=== PATIENT | female | born 1955 | race Two or more races ===

== ENCOUNTER 2022-06-04 21:09 | Emergency (ER) | payer OTHER ==
[~2022-06-04] VITALS: Ht 160 cm; Wt 70.0 kg
[2022-06-05 01:03] LABS: Urine Bacteria NONE SEEN /hpf (None Seen); Urine Blood Negative /uL (Negative); Urine Hyaline Cast MANY /lpf (0 - 2); Urine Mucus FEW (None Seen); Urine Specific Gravity 1.035 (1.001-1.035); Urine WBC 12 /hpf (0 - 5)
[2022-06-05] MEDS ORDERED: LACTATED RINGER'S 1,000 ML IV ONE (02:15)
[2022-06-05 02:53] LABS: Albumin 3.3 g/dL (3.4-5.0); BUN/Creatinine Ratio 19.4; Calcium 8.3 mg/dL (8.5-10.1); Potassium 3.5 mmol/L (3.5-5.1)
[2022-06-05 03:05] LABS: INR 1.18 (0.9-1.15); Partial Thromboplastin Time 26.5 sec (24.6-33.4)
[2022-06-05 03:07] LABS: Bilirubin, Total 0.4 mg/dL (0.2-1.0); Total Protein 5.9 g/dL (6.4-8.2)
[2022-06-05 03:09] LABS: Hematocrit 40.9 % (36.0-46.0); Hemoglobin 13.9 g/dL (12.2-16.2); Mean Corpuscular Hemoglobin 30.8 pg (28.0-32.0); Mean Corpuscular Hgb Conc. 33.9 g/dL (32.0-36.0); Mean Corpuscular Volume 90.9 fL (80.0-100.0); Red Cell Distribution Width 13.4 % (11.8-14.3); White Blood Cell 14.7 10^3/uL (4.4-10.8)
[2022-06-05 03:11] LABS: Band Neutrophils % (manual) 0; Basophils % (manual) 0 (0.0-2.0); Blast Cells 0; Metamyelocytes % 0; Myelocytes % 0; Promyelocytes % 0; Reactive Lymphocytes 0
[2022-06-05 03:41] LABS: Eosinophils % (manual) 23 (0-7); Lymphocytes % (manual) 25 (10.0-50.0); Monocytes % (manual) 4 (0-12)
[2022-06-05] MEDS ORDERED: FAMO20TA10 PO (04:17)
[2022-06-05 07:53] VITALS: BP 139/63
== END 2022-06-05 07:52 | disposition home or self-care (01) ==
LOC: ER 21:09
DX: R10.13 Epigastric pain (principal)
CPT/HCPCS: 36415; 74176; 80053; 81001; 83605; 83690; 84484; 85007; 85027; 85610; 85730; 87040; 96360

== ENCOUNTER → 2022-06-08 | Outpatient (CLI) | payer OTHER ==
[~2022-06-08] MED LIST: FAMO20TA10 PO
[2022-06-08 09:09] LABS: Hematocrit 41.9 % (36.0-46.0); Hemoglobin 14.1 g/dL (12.2-16.2); Mean Corpuscular Hemoglobin 30.4 pg (28.0-32.0); Mean Corpuscular Hgb Conc. 33.7 g/dL (32.0-36.0); Mean Corpuscular Volume 90.2 fL (80.0-100.0); Red Blood Cells 4.65 10^6/uL (4.0-5.20); Red Cell Distribution Width 13.6 % (11.8-14.3); White Blood Cell 13.4 10^3/uL (4.4-10.8)
[2022-06-08 09:22] LABS: Basophils % (manual) 0 (0.0-2.0); Blast Cells 0; Metamyelocytes % 0; Myelocytes % 0; Promyelocytes % 0
[2022-06-08 10:02] LABS: Urine Bacteria NONE SEEN /hpf (None Seen); Urine Blood Negative /uL (Negative); Urine Specific Gravity 1.009 (1.001-1.035); Urine WBC 2 /hpf (0 - 5)
[2022-06-08 10:05] LABS: Magnesium 2.2 mg/dL (1.6-2.6); Potassium 3.5 mmol/L (3.5-5.1)
[2022-06-08 10:12] LABS: Albumin 3.5 g/dL (3.4-5.0); BUN/Creatinine Ratio 6.8; Bilirubin, Total 0.5 mg/dL (0.2-1.0); Calcium 8.8 mg/dL (8.5-10.1); Total Protein 6.4 g/dL (6.4-8.2); Uric Acid 3.6 mg/dL (2.6-6.0)
[2022-06-08 12:12] LABS: Band Neutrophils % (manual) 1; Eosinophils % (manual) 47 (0-7); Lymphocytes % (manual) 20 (10.0-50.0); Monocytes % (manual) 3 (0-12); Reactive Lymphocytes 5
== END | disposition home or self-care (01) ==
LOC: LAB 08:45
PROVIDERS: ATTEND Family Medicine
DX: Z00.00 Encounter for general adult medical examination without abnormal findings (principal); R53.83 Other fatigue; E55.9 Vitamin D deficiency, unspecified; R11.0 Nausea; R19.7 Diarrhea, unspecified; H40.9 Unspecified glaucoma
CPT/HCPCS: 36415; 80053; 80061; 81001; 82306; 82607; 83036; 83540; 83735; 84443; 84550; 85007; 85027

== ENCOUNTER → 2022-06-13 | Outpatient (CLI) | payer OTHER | END | disposition home or self-care (01) | LOC: LAB 12:35 | PROVIDERS: ATTEND Family Medicine | DX: Z00.00 Encounter for general adult medical examination without abnormal findings (principal); R19.7 Diarrhea, unspecified; R11.0 Nausea; H40.9 Unspecified glaucoma; E55.9 Vitamin D deficiency, unspecified; R53.83 Other fatigue | CPT/HCPCS: 87177 ==

== ENCOUNTER → 2024-02-01 | Outpatient (CLI) | payer OTHER | END | disposition home or self-care (01) | LOC: LAB 13:17 | PROVIDERS: ATTEND Family Medicine | DX: Z00.00 Encounter for general adult medical examination without abnormal findings (principal); R19.7 Diarrhea, unspecified; R10.9 Unspecified abdominal pain | CPT/HCPCS: 82270 ==

== ENCOUNTER → 2024-02-08 | Outpatient (CLI) | payer OTHER ==
[2024-02-08 09:59] LABS: Urine Bacteria None Seen /hpf (None Seen); Urine WBC None Seen /hpf (0 - 5)
[2024-02-08 10:14] LABS: Basophils # (auto) 0.1 10 ^3/uL (0-0.2); Basophils % (auto) 2.3 % (0.0-2.0); Eosinophils # (auto) 0.4 10 ^3/uL (0-0.8); Eosinophils % (auto) 6.8 % (0.0-7.0); Hematocrit 40.4 % (36.0-46.0); Hemoglobin 13.8 g/dL (12.2-16.2); Lymphocytes # (auto) 2.2 10 ^3/uL (0.4-5.4); Lymphocytes % (auto) 33.5 % (10.0-50.0); Mean Corpuscular Hemoglobin 31.1 pg (28.0-32.0); Mean Corpuscular Hgb Conc. 34.2 g/dL (32.0-36.0); Mean Corpuscular Volume 90.8 fL (80.0-100.0); Monocytes # (auto) 0.4 10 ^3/uL (0-1.3); Monocytes % (auto) 5.7 % (0.0-12.0); Neutrophils # (auto) 3.4 10 ^3/uL (1.6-8.6); Neutrophils % (auto) 51.7 % (37.0-80.0); Nucleated Red Blood Cells % 0.1 %; Platelet Count (auto) 289 10^3/uL (140-450); Red Blood Cells 4.45 10^6/uL (4.0-5.20); Red Cell Distribution Width 14.1 % (11.8-14.3); White Blood Cell 6.6 10^3/uL (4.4-10.8)
[2024-02-08 10:40] LABS: Urine Blood Negative /uL (Negative); Urine Clarity Clear (Clear); Urine Protein, UAD Negative (Negative); Urine Specific Gravity 1.005 (1.001-1.035); Urine Urobilinogen Normal (Negative); Urine pH 7.5 (5.0-9.0)
[2024-02-08 10:44] LABS: Urine Color Light-Yellow (Yellow)
[2024-02-08 10:56] LABS: Folate (Folic Acid) 11.32 ng/mL (>5.38)
[2024-02-08 11:10] LABS: Alanine Aminotransferase 15 U/L (7-40); Albumin 4.4 g/dL (3.2-4.8); Alkaline Phosphatase 81 U/L (46-116); Anion Gap 5 (5-15); Aspartate Aminotransferase 14 U/L (13-40); Bilirubin, Total 0.5 mg/dL (0.2-1.0); Blood Urea Nitrogen 10 mg/dL (9-23); Calcium 9.7 mg/dL (8.7-10.4); Carbon Dioxide 29 mmol/L (20-31); Chloride 106 mmol/L (98-107); Cholesterol 198 mg/dL (< 200); Glucose 93 mg/dL (74-106); HDL Cholesterol 55 mg/dL (40-59); LDL Cholesterol 127 mg/dL (< 100); Potassium 4.1 mmol/L (3.5-5.1); Sodium 140 mmol/L (136-145); Total Protein 6.6 g/dL (5.7-8.2); Triglycerides 130 mg/dL (< 150)
[2024-02-08 11:12] LABS: % Iron Saturation 17.6 % (15-50)
[2024-02-08 12:11] LABS: Uric Acid 5.2 mg/dL (3.1-7.8)
== END | disposition home or self-care (01) ==
LOC: LAB 09:35
PROVIDERS: ATTEND Family Medicine
DX: Z00.00 Encounter for general adult medical examination without abnormal findings (principal); R19.7 Diarrhea, unspecified; R10.9 Unspecified abdominal pain
CPT/HCPCS: 36415; 80053; 80061; 81001; 82306; 82607; 82746; 83013; 83036; 83540; 83550; 84403; 84443; 84550; 85025

== ENCOUNTER → 2024-02-15 | Outpatient (CLI) | payer OTHER | END | disposition home or self-care (01) | LOC: LAB 11:13 | PROVIDERS: ATTEND Family Medicine | DX: Z00.00 Encounter for general adult medical examination without abnormal findings (principal); R19.7 Diarrhea, unspecified; R10.9 Unspecified abdominal pain | CPT/HCPCS: 82270 ==